=== PATIENT | female | born 1990 | race Two or more races ===

== ENCOUNTER 2018-03-23 21:34 | Emergency (ER) | payer MEDICAID ==
[~2018-03-23] VITALS: Ht 167.6 cm; Wt 63.5 kg
[2018-03-23 22:15] VITALS: BP 124/84
[2018-03-23] MEDS ORDERED: NKM (22:16)
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
[2018-03-23 23:00] VITALS: BP 124/84
== END 2018-03-23 23:00 | disposition home or self-care (01) ==
LOC: EMR 22:37
DX: S39.012A Strain of muscle, fascia and tendon of lower back, initial encounter (principal); V43.52XA Car driver injured in collision with other type car in traffic accident, initial encounter; Y92.410 Unspecified street and highway as the place of occurrence of the external cause
CPT/HCPCS: 99282

== ENCOUNTER 2018-09-02 14:02 | Emergency (ER) | payer MEDICAID ==
[~2018-09-02] VITALS: Ht 167.6 cm; Wt 57.6 kg
[~2018-09-02 14:02] MED LIST: NKM
[2018-09-02 14:15] VITALS: BP 113/75
--- NOTE | 2018-09-02 14:15 | NUR ---
ED Nurse Note: Pt walked into ED c/o generalized pain, dizziness, N/D since 08/27, and states she lost 15 lbs since then. Pt AA&ox4, gcs=15, skin warm and dry, tachypnea, -n/v/d, ambulates w/ steady slow gait, sinus tachy on manager monitoring, vss, will continue to monitor
[2018-09-02 14:45] LABS: APPEARANCE,URINE CLEAR; BILIRUBIN, URINE NEGATIVE (NEGATIVE); COLOR,URINE PALE YELLOW; GLUCOSE, URINE (UA) NEGATIVE (NEGATIVE); KETONES,URINE 3+ (NEGATIVE); LEUKOCYTE ESTERASE ,URINE NEGATIVE (NEGATIVE); NITRITE,URINE NEGATIVE (NEGATIVE); PH,URINE 7 (4.5-8.0); PROTEIN,URINE 2+ (NEGATIVE); UROBILINOGEN,URINE NORMAL MG/DL (0.0-1.0)
[2018-09-02 15:17] LABS: BASOPHILS % (AUTO) 0.4 % (0.0-2.0); HEMATOCRIT 34.7 % (37.0-47.0); LYMPHOCYTES % (AUTO) 6.6 % (20.0-45.0); MEAN CORPUSCULAR VOLUME 89 FL (80-99); MONOCYTES % (AUTO) 8.7 % (1.0-10.0); NEUTROPHILS % (AUTO) 84.4 % (45.0-75.0); PLATELET COUNT 180 K/UL (150-450); RED BLOOD COUNT 3.89 M/UL (4.20-5.40); RED CELL DISTRIBUTION WIDTH 11.1 % (11.6-14.8); WHITE BLOOD COUNT 16.9 K/UL (4.8-10.8)
--- NOTE | 2018-09-02 15:19 | Diagnostic Imaging Report ---
Indication: Chest pain Technique: One view of the chest Comparison: none Findings: Lungs and pleural spaces are clear. Heart size is normal Impression: No acute process
--- NOTE | 2018-09-02 15:20 | Emergency Room Report ---
History of Present Illness General Chief Complaint: General Complaint Source: Patient Present Illness HPI 27-year-old female presents to the emergency department complaining of cough, body aches, fatigue and left flank pain 1 week. Patient reports subjective fevers and chills she denies taking medications prior to arrival. She also reports Nausea, one episode of vomiting, and several episodes of non-bloody diarrhea. She denies blood in her vomit, and denies black stools. Denies sore throat, ear pain, high fevers, lethargy, neck pain/stiffness, irritability, photophobia dehydration, N/V/D. Denies Cp, Palpitations, LOC, AMS , seizures, paresthesias, or changes in Hearing or vision, no Sudden severe HDEZ. Denies hx of smoking, asthma or COPD. Allergies: Coded Allergies: No Known Allergies (Unverified , 09/02/18) Patient History Past Medical History: see triage record Past Surgical History: none Pertinent Family History: none Last Menstrual Period: 08/25/18 Now: No Reviewed Nursing Documentation: PMH: Agreed; PSxH: Agreed Nursing Documentation-PMH Past Medical History: No History, Except For Review of Systems All Other Systems: negative except mentioned in HPI Physical Exam Vital Signs Date Time Temp Pulse Resp B/P (MAP) Pulse Ox O2 Delivery O2 Flow Rate FiO2 09/02/18 14:08 98.2 117 16 106/66 95 Room Air Cardiovascular #1: tachycardia Medical Decision Making PA Attestation Dr. Garcia is my supervising Physician whom patient management has been discussed with. Diagnostic Impression: Primary Impression: Pneumonia Qualified Codes: J18.1 - Lobar pneumonia, unspecified organism ER Course Pt. presents to the ED c/o [ ] Ddx considered but are not limited to Diverticulitis, acute appy, diarrhea,UC, PUD, GE, pancreatitis, gallstone Vital signs: PT. is tachycardic around 115, remaining VS are WNL, pt. is afebrile H&PE are most consistent with Hypovolemia - Pneumonia ORDERS: CBC- wbc's of 16.9 otherwise unremarkable, CMP: low NA- mild -UA: ketones and proteins, not consistent with bacterial infection though. -CXR: unremarkable -CT Chest, Abdomen and Pelvis: multifocal pna. ED INTERVENTIONS : -- 1000NSx 2 -Levaquin 750mg PO DISCHARGE: At this time pt. is stable for d/c to home. Will provide printed patient care instructions, and any necessary prescriptions. Care plan and follow up instructions have been discussed with the patient prior to discharge. Labs Test 09/02/18 14:33 09/02/18 15:00 Urine Color Pale yellow Urine Appearance Clear Urine pH 7 (4.5-8.0) Urine Specific [place] 1.005 (1.005-1.035) Urine Protein 2+ (NEGATIVE) Urine Glucose (UA) Negative (NEGATIVE) Urine Ketones 3+ (NEGATIVE) Urine Blood 2+ (NEGATIVE) Urine Nitrite Negative (NEGATIVE) Urine Bilirubin Negative (NEGATIVE) Urine Urobilinogen Normal MG/DL (0.0-1.0) Urine Leukocyte Esterase Negative (NEGATIVE) Urine RBC 2-4 /HPF (0 - 2) Urine WBC 0-2 /HPF (0 - 2) Urine Squamous Epithelial Cells Occasional /LPF Urine Bacteria Occasional /HPF (NONE) Urine HCG, Qualitative Negative (NEGATIVE) White Blood Count 16.9 K/UL (4.8-10.8) Red Blood Count 3.89 M/UL (4.20-5.40) Hemoglobin 12.0 G/DL (12.0-16.0) Hematocrit 34.7 % (37.0-47.0) Mean Corpuscular Volume 89 FL (80-99) Mean Corpuscular Hemoglobin 31.0 PG (27.0-31.0) Mean Corpuscular Hemoglobin Concent 34.7 G/DL (32.0-36.0) Red Cell Distribution Width 11.1 % (11.6-14.8) Platelet Count 180 K/UL (150-450) Mean Platelet Volume 8.2 FL (6.5-10.1) Neutrophils (%) (Auto) 84.4 % (45.0-75.0) Lymphocytes (%) (Auto) 6.6 % (20.0-45.0) Monocytes (%) (Auto) 8.7 % (1.0-10.0) Eosinophils (%) (Auto) 0.0 % (0.0-3.0) Basophils (%) (Auto) 0.4 % (0.0-2.0) Sodium Level 131 MMOL/L (136-145) Potassium Level 3.6 MMOL/L (3.5-5.1) Chloride Level 93 MMOL/L (98-107) Carbon Dioxide Level 21 MMOL/L (21-32) Anion Gap 17 mmol/L (5-15) Blood Urea Nitrogen 8 mg/dL (7-18) Creatinine 1.1 MG/DL (0.55-1.30) Estimat Glomerular Filtration Rate > 60 mL/min (>60) Glucose Level 97 MG/DL (74-106) Calcium Level 8.7 MG/DL (8.5-10.1) Total Bilirubin 1.1 MG/DL (0.2-1.0) Direct Bilirubin 0.3 MG/DL (0.0-0.3) Aspartate Amino Transf (AST/SGOT) 41 U/L (15-37) Alanine Aminotransferase (ALT/SGPT) 38 U/L (12-78) Alkaline Phosphatase 71 U/L (46-116) Total Protein 8.2 G/DL (6.4-8.2) Albumin 3.4 G/DL (3.4-5.0) Globulin 4.8 g/dL Albumin/Globulin Ratio 0.7 (1.0-2.7) Lipase 125 U/L (73-393) EKG Diagnostic Results EP Interpretation: Dr. Garcia Rate: normal - 99 bpm Rhythm: NSR ST Segments: no acute changes ASA given to the pt in ED: No PA Scribe Text This Interpretation was scribed by FARIBA Key. CT/MRI/US Diagnostic Results CT/MRI/US Diagnostic Results : Imaging Test Ordered: CT Chest, Abdomen Impression "Consolidation within the bilateral lower lobes and right upper lobe findings with the multifocal pneumonia" Per official radiology report- Please see report for specific details. Last Vital Signs Date Time Temp Pulse Resp B/P (MAP) Pulse Ox O2 Delivery O2 Flow Rate FiO2 09/02/18 14:08 98.2 117 16 106/66 95 Room Air Disposition: HOME, SELF-CARE Condition: Stable Scripts Guaifenesin (Guaifenesin) 1,200 Mg Tab.er.12h 1200 MG PO Q12HR for 10 Days, #20 TAB Prov: Eliana Key 09/02/18 Codeine/Promethazine Hcl* (PROMETHAZINE-CODEINE SYRUP*) 118 Ml Syrup 5 ML ORAL Q6H PRN for For Cough, #120 ML 0 Refills Prov: Eliana Key 09/02/18 Levofloxacin* (LEVAQUIN*) 750 Mg Tablet 750 MG ORAL DAILY for 5 Days, #5 TAB Prov: Eliana Key 09/02/18 Referrals: [facility] (PCP) Patient Instructions: Community-Acquired Pneumonia, Adult, Mghw-sy-Ekpi Additional Instructions: Take medications as directed. Follow up with a Primary Care Provider in 3-5 days, even if your symptoms have resolved. --Please review list of primary care clinics, if you do not already have a primary care provider Return sooner to ED if new symptoms occur, or current symptoms become worse. Do not drink alcohol, drive, or operate heavy machinery while taking Cough Syrup as this may cause drowsiness. - Please note that this Emergency Department Report was dictated using [employer] supervisor technology software, occasionally this can lead to erroneous entry secondary to interpretation by the dictation equipment. Eliana Key Sep 02, 2018 15:20
[2018-09-02 15:25] VITALS: BP 118/98
--- NOTE | 2018-09-02 15:25 | NUR ---
ED Nurse Note: PA notified regarding pt's condition fever = 101.8 pain on back 10/10 sharp and constant.
[2018-09-02 15:27] LABS: ANION GAP 17 mmol/L (5-15); BLOOD UREA NITROGEN 8 mg/dL (7-18); CALCIUM 8.7 MG/DL (8.5-10.1); CARBON DIOXIDE 21 MMOL/L (21-32); CHLORIDE 93 MMOL/L (98-107); CREATININE 1.1 MG/DL (0.55-1.30); POTASSIUM 3.6 MMOL/L (3.5-5.1); SODIUM 131 MMOL/L (136-145)
[2018-09-02] MEDS ORDERED: Ketorolac 30mg Inj IV ONE (15:30)
[2018-09-02 15:37] LABS: ALANINE AMINOTRANSFERASE 38 U/L (12-78); ALBUMIN 3.4 G/DL (3.4-5.0); ALBUMIN/GLOBULIN RATIO 0.7 (1.0-2.7); ALKALINE PHOSPHATASE 71 U/L (46-116); ASPARTATE AMINO TRANSFERASE 41 U/L (15-37); BILIRUBIN,TOTAL 1.1 MG/DL (0.2-1.0)
[2018-09-02 15:44] LABS: BILIRUBIN,DIRECT 0.3 MG/DL (0.0-0.3)
--- NOTE | 2018-09-02 16:00 | NUR ---
ED Nurse Note: pt reports pain is better with medication. pt's temp 98.8, skin warm and dry. will continue to monitor.
[2018-09-02 16:25] VITALS: BP 113/79
--- NOTE | 2018-09-02 16:40 | NUR ---
ED Nurse Note: pt given food and water per PA okay.
[2018-09-02] MEDS ORDERED: Isovue-300 100ml vial INJ PRN (17:15)
[2018-09-02] MEDS ORDERED: Isovue-370 150ml vial INJ PRN (17:15)
--- NOTE | 2018-09-02 17:40 | NUR ---
ED Nurse Note: pt reports pain is better, breathing is better, pt resting in bed comfortably, vss will continue to monitor. pending ct.
--- NOTE | 2018-09-02 18:18 | Diagnostic Imaging Report ---
EXAM: CT Abdomen and Pelvis With Intravenous Contrast CLINICAL HISTORY: PAIN TECHNIQUE: Axial computed tomography images of the abdomen and pelvis with intravenous contrast. CTDI is 0.17, 0.17, 12.62, 12.62, 12.62, 12.95, 8. 66 mGy and DLP is 1005 mGy-cm. One or more of the following dose reduction techniques were used: automated exposure control, adjustment of the mA and/or kV according to patient size, use of iterative reconstruction technique. COMPARISON: No relevant prior studies available. FINDINGS: Lung bases: Unremarkable. No mass. No consolidation. ABDOMEN: Liver: Unremarkable. Gallbladder and bile ducts: Unremarkable. Pancreas: Unremarkable. Spleen: Unremarkable. Adrenals: Unremarkable. Kidneys and ureters: Probable tiny cyst within the right kidney. Stomach and bowel: Unremarkable. PELVIS: Appendix: Appendix is unremarkable. Bladder: Unremarkable. Reproductive: Question myomatous uterus. ABDOMEN and PELVIS: Intraperitoneal space: Trace free fluid in the pelvis, likely physiologic. Bones/joints: No acute fracture. No dislocation. Soft tissues: Unremarkable. Vasculature: Unremarkable. No abdominal aortic aneurysm. Lymph nodes: Unremarkable. IMPRESSION: No acute findings.
--- NOTE | 2018-09-02 18:21 | Diagnostic Imaging Report ---
EXAM: CT Angiography Chest With Intravenous Contrast CLINICAL HISTORY: PAIN TECHNIQUE: Axial computed tomographic angiography images of the chest with intravenous contrast using pulmonary embolism protocol. CTDI is 0.17, 0. 17, 12.62, 12.62, 12.62, 12.95, 8.66 mGy and DLP is 1005 mGy-cm. One or more of the following dose reduction techniques were used: automated exposure control, adjustment of the mA and/or kV according to patient size, use of iterative reconstruction technique. MIP reconstructed images were created and reviewed. COMPARISON: No relevant prior studies available. FINDINGS: Pulmonary arteries: No evidence of pulmonary embolus. Aorta: No thoracic aortic dissection or aneurysm. Lungs: Consolidation within the bilateral lower lobes and right upper lobe. Findings likely represent multifocal pneumonia. Pleural space: Unremarkable. No significant effusion. No pneumothorax. Heart: Unremarkable. No cardiomegaly. No significant pericardial effusion. No evidence of RV dysfunction. Bones/joints: No acute fracture. No dislocation. Soft tissues: Unremarkable. Lymph nodes: Unremarkable. No enlarged lymph nodes. IMPRESSION: Consolidation within the bilateral lower lobes and right upper lobe. Findings likely represent multifocal pneumonia.
[2018-09-02] MEDS ORDERED: Levofloxacin 500mg tab ORAL ONE ×2 (18:30)
[2018-09-02] MEDS ORDERED: GUAIFENESIN1200 MG PO (18:50)
[2018-09-02] MEDS ORDERED: PROMETHAZINE-C118 M1 ORAL (18:50)
[2018-09-02] MEDS ORDERED: LEVAQUIN750 MG ORAL (18:50)
[2018-09-02 19:20] VITALS: BP 128/78
--- NOTE | 2018-09-02 19:20 | NUR ---
ED Nurse Note: pt discharge instruction provided w/ prescription, pt education done, iv removed, vss, nsr, pt belonging sent with pt, pt verbalized understanding and agrees with plan, pt advised to follow up with pcp or return to ed if s/s worsen or new s/s develop.
== END 2018-09-02 19:20 | disposition home or self-care (01) ==
LOC: EMR 14:50
DX: J18.9 Pneumonia, unspecified organism (principal)
CPT/HCPCS: 36415; 71045; 71275; 74177; 80053; 81003; 81025; 82248; 83690; 85025; 86710; 93005; 96361; 96374; 96375; 99284; J1885; J2405; Q9967

== ENCOUNTER 2019-04-25 08:46 | Emergency (ER) | payer MEDICAID ==
[~2019-04-25] VITALS: Ht 167.6 cm; Wt 65.3 kg
[~2019-04-25 08:46] MED LIST changes: +GUAIFENESIN1200 MG PO; +LEVAQUIN750 MG ORAL; +PROMETHAZINE-C118 M1 ORAL
[2019-04-25 08:59] VITALS: BP 144/86
--- NOTE | 2019-04-25 09:03 | NUR ---
ED Nurse Note: pt walked in to ED due to swelling on right posterior upper leg for 1 day. pt also c/o possible spider bite on right upper arm. no visible bite noted. no pain. c/o itchness. AAO x4. respiration even and non-labored noted. will wait for the further order.
--- NOTE | 2019-04-25 09:35 | Emergency Room Report ---
History of Present Illness General Chief Complaint: Skin Rash/Abscess Source: Patient Present Illness HPI The patient states she woke up yesterday morning with a bite of some sort on her right posterior thigh. She states she also has one on her right upper arm. She states in her apartment she does have an note a lot of spiders. She believes it was a spider bite. She states it occasionally itches. She denies recent illness. She denies fever chills. She denies nausea or vomiting. She has no other complaints. She does note that she has acne and is requesting recommendations to treat her acne on her face, neck, chest and back. She states this is ongoing and chronic. Allergies: Coded Allergies: No Known Allergies (Unverified , 09/02/18) Patient History Past Medical History: none Past Surgical History: Social History: Denies: smoking, alcohol use, drug use Reviewed Nursing Documentation: PMH: Agreed; PSxH: Agreed Nursing Documentation-PMH Past Medical History: No History, Except For Review of Systems All Other Systems: negative except mentioned in HPI Physical Exam Vital Signs Date Time Temp Pulse Resp B/P (MAP) Pulse Ox O2 Delivery O2 Flow Rate FiO2 04/25/19 08:50 97.9 83 17 144/86 (105) 99 Room Air Sp02 EP Interpretation: reviewed, normal General Appearance: no apparent distress, alert, GCS 15, non-toxic Head: normocephalic, atraumatic Eyes: bilateral eye normal inspection, bilateral eye PERRL ENT: hearing grossly normal, normal pharynx, no angioedema, normal voice Neck: normal inspection Respiratory: no respiratory distress, no retraction, no accessory muscle use, speaking full sentences Rectal: deferred Musculoskeletal: normal inspection, gait/station normal Neurologic: alert, oriented x3, responsive, motor strength/tone normal, sensory intact, speech normal Psychiatric: judgement/insight normal, memory normal, mood/affect normal, no suicidal/homicidal ideation Skin: other - Raised wheels on R. posterior thigh [id number] and R. upper arm - quarter-sized. Diffuse comedones/acne on face, neck, chest and upper back. Medical Decision Making Diagnostic Impression: Primary Impression: Insect bites Additional Impression: Acne ER Course This patient has findings on exam consistent with an insect bite. With a local allergic reaction. Likely a spider bite, regardless, there is no evidence of super-infection. Patient is also requesting treatment for her acne. She has mild comedogenic acne. I will give the patient a short course of doxycycline and instructed her on [id number] acne treatment. Overall, the patient is well-appearing and nontoxic. There is no evidence of infection. The patient is given close return precautions and follow-up instructions. Last Vital Signs Date Time Temp Pulse Resp B/P (MAP) Pulse Ox O2 Delivery O2 Flow Rate FiO2 04/25/19 08:59 97.9 83 17 144/86 99 Room Air Status: improved Disposition: HOME, SELF-CARE Condition: Improved Randa Hernandes DO Apr 25, 2019 09:35
[2019-04-25] MEDS ORDERED: ANTI-ITCH28 G1 TP (09:38)
[2019-04-25] MEDS ORDERED: DOXYCYCLINE MO100 MG ORAL (09:38)
[2019-04-25 09:45] VITALS: BP 144/86
--- NOTE | 2019-04-25 09:46 | NUR ---
ER DISCHARGE NOTE: Patient is cleared to be discharged per ERMD, pt is aox4, on room air, with stable vital signs. pt was given dc and prescription instructions, pt was able to verbalize understanding, pt id band removed without complications. pt is able to ambulate with steady gait. pt took all belongings.
== END 2019-04-25 09:46 | disposition home or self-care (01) ==
LOC: EMR 09:27
DX: S40.861A Insect bite (nonvenomous) of right upper arm, initial encounter (principal); S70.361A Insect bite (nonvenomous), right thigh, initial encounter; L70.9 Acne, unspecified; W57.XXXA Bitten or stung by nonvenomous insect and other nonvenomous arthropods, initial encounter; Y92.039 Unspecified place in apartment as the place of occurrence of the external cause
CPT/HCPCS: 99281

== ENCOUNTER 2019-08-06 13:25 | Emergency (ER) | payer MEDICAID ==
[~2019-08-06] VITALS: Ht 170.2 cm; Wt 61.2 kg
[~2019-08-06 13:25] MED LIST changes: +ANTI-ITCH28 G1 TP; +DOXYCYCLINE MO100 MG ORAL
[2019-08-06] MEDS ORDERED: NKM (13:44)
[2019-08-06 13:45] VITALS: BP 122/79
[2019-08-06 14:26] LABS: APPEARANCE,URINE CLEAR; BILIRUBIN, URINE NEGATIVE (NEGATIVE); COLOR,URINE PALE YELLOW; GLUCOSE, URINE (UA) NEGATIVE (NEGATIVE); KETONES,URINE 1+ (NEGATIVE); LEUKOCYTE ESTERASE ,URINE 1+ (NEGATIVE); NITRITE,URINE NEGATIVE (NEGATIVE); PH,URINE 8 (4.5-8.0); PROTEIN,URINE NEGATIVE (NEGATIVE); UROBILINOGEN,URINE NORMAL MG/DL (0.0-1.0)
[2019-08-06] MEDS ORDERED: PLAN B ONE-STE1.5 MG PO (14:31)
--- NOTE | 2019-08-06 14:31 | Emergency Room Report ---
History of Present Illness General Chief Complaint: Female Urogenital Problems Source: Patient Present Illness HPI 28-year-old female presents to the emergency department requesting medical evaluation status post unprotected intercourse this morning. Patient states she is not currently taking control. Patient denies pain or symptoms at this time she denies vaginal discharge, rashes, external genital lesions, swollen tender lymph nodes or joint pain. Patient denies flulike symptoms, and fevers, chills or abdominal pain. She denies history of immune compromise. No other aggravating or relieving factors at this time. Allergies: Coded Allergies: No Known Allergies (Unverified , 09/02/18) Patient History Past Medical History: see triage record Past Surgical History: none Pertinent Family History: none Last Menstrual Period: 07/10/19 Reviewed Nursing Documentation: PMH: Agreed; PSxH: Agreed Nursing Documentation-PMH Past Medical History: No Stated History Review of Systems All Other Systems: negative except mentioned in HPI Physical Exam Vital Signs Date Time Temp Pulse Resp B/P (MAP) Pulse Ox O2 Delivery O2 Flow Rate FiO2 08/06/19 13:37 98.2 78 17 122/79 (93) 99 Room Air Sp02 EP Interpretation: reviewed, normal General Appearance: no apparent distress, alert, GCS 15, non-toxic Head: normocephalic, atraumatic Eyes: bilateral eye normal inspection, bilateral eye PERRL ENT: hearing grossly normal, normal voice Neck: full range of motion Respiratory: lungs clear, normal breath sounds, speaking full sentences Cardiovascular #1: regular rate, rhythm Gastrointestinal: non tender, soft Genitourinary: normal inspection, no CVA tenderness Musculoskeletal: normal range of motion, gait/station normal, non-tender Neurologic: alert, motor strength/tone normal, oriented x3, sensory intact, responsive, speech normal Psychiatric: judgement/insight normal Skin: no rash Medical Decision Making PA Attestation Dr. Allison is my supervising Physician whom patient management has been discussed with. Diagnostic Impression: Primary Impression: Encounter for medical screening examination Additional Impression: Unprotected sexual intercourse ER Course 28-year-old female presents to the emergency department requesting medical evaluation status post unprotected intercourse this morning. Patient states she is not currently taking control. Patient denies pain or symptoms at this time she denies vaginal discharge, rashes, external genital lesions, swollen tender lymph nodes or joint pain. Patient denies flulike symptoms, and fevers, chills or abdominal pain. She denies history of immune compromise. No other aggravating or relieving factors at this time. Ddx considered but are not limited to UTi , Pyelo, STI, Stone, Cystitis Vital signs: are WNL, pt. is afebrile H&PE are most consistent with recent unprotected intercourse. ORDERS: - UA labs are attached --most indicative of contamination: presence of equal amounts of bacteria and squamous cells, no elevation in inflammatory markers, nitrite negative. D/W pt. 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 ED INTERVENTIONS: None required at this time. DISCHARGE: At this time pt. is stable for d/c to home. Will provide printed patient care instructions, and any necessary prescriptions. Care plan and follow up instructions have been discussed with the patient prior to discharge. Labs Test 08/06/19 14:05 Urine Color Pale yellow Urine Appearance Clear Urine pH 8 (4.5-8.0) Urine Specific [place] 1.010 (1.005-1.035) Urine Protein Negative (NEGATIVE) Urine Glucose (UA) Negative (NEGATIVE) Urine Ketones 1+ (NEGATIVE) Urine Blood 1+ (NEGATIVE) Urine Nitrite Negative (NEGATIVE) Urine Bilirubin Negative (NEGATIVE) Urine Urobilinogen Normal MG/DL (0.0-1.0) Urine Leukocyte Esterase 1+ (NEGATIVE) Urine RBC 0-2 /HPF (0 - 2) Urine WBC 2-4 /HPF (0 - 2) Urine Squamous Epithelial Cells Occasional /LPF Urine Bacteria Occasional /HPF (NONE) Urine HCG, Qualitative Negative (NEGATIVE) Last Vital Signs Date Time Temp Pulse Resp B/P (MAP) Pulse Ox O2 Delivery O2 Flow Rate FiO2 08/06/19 13:45 98.2 78 17 122/79 99 Room Air Disposition: HOME, SELF-CARE Condition: Stable Scripts Levonorgestrel (PLAN B ONE-STEP) 1.5 Mg Tablet 1.5 MG PO DAILY, #1 TAB Prov: Eliana Key 08/06/19 Referrals: [facility] (PCP) Patient Instructions: Medical Screening Exam Additional Instructions: Take medications as directed. Follow up with a Primary Care Provider in 3-5 days, even if your symptoms have resolved. --Please review list of STD testing facilities if you do not already have a primary care provider who can order these tests for you as an outpatient. Return sooner to ED if new symptoms occur, or current symptoms become worse. - Please note that this Emergency Department Report was dictated using [employer] pigeon loader technology software, occasionally this can lead to erroneous entry secondary to interpretation by the dictation equipment. Eliana Key Aug 06, 2019 14:31
[2019-08-06 14:42] VITALS: BP 130/84
[2019-08-08] MEDS ORDERED: PHENAZOPYRIDIN200 MG ORAL (16:39)
== END 2019-08-06 14:44 | disposition home or self-care (01) ==
LOC: EMR 13:50
DX: Z20.2 Contact with and (suspected) exposure to infections with a predominantly sexual mode of transmission (principal)
CPT/HCPCS: 81003; 81025; Z7502; 99283